=== PATIENT | male | born 1965 | race Caucasian/White ===

== ENCOUNTER 2018-05-22 11:29 | Emergency (ER) | payer OTHER ==
[2018-05-22] MEDS: HYDROCODONE/APAP (5/325) TAB PO (12:14)
== END 2018-05-22 13:42 | disposition home or self-care (01) ==
LOC: FTE 13:42
DX: S20.211A Contusion of right front wall of thorax, initial encounter (principal); F17.210 Nicotine dependence, cigarettes, uncomplicated; W18.2XXA Fall in (into) shower or empty bathtub, initial encounter; Y92.9 Unspecified place or not applicable
CPT/HCPCS: 71100; 99283